=== PATIENT | male | born 1980 | race Caucasian/White ===

== ENCOUNTER 2020-10-20 08:22 | Emergency (ER) | payer BC ==
[2020-10-20 08:44] VITALS: BP 157/100; PULSE 102
[2020-10-20] MEDS ORDERED: Ondansetron 4 MG/2 ML SDV IVPUSH ONE (08:56)
[2020-10-20] MEDS ORDERED: Sodium Chloride 0.9% 1,000 ML IV STA (08:56)
[2020-10-20] MEDS ORDERED: HYDROmorphone 1 MG/ML Syringe IVPUSH ONE ×2 (08:57→09:57)
--- NOTE | 2020-10-20 09:03 | EDM.PDOC ---
ED HPI GENERAL MEDICAL PROBLEM - General Chief Complaint: Gastrointestinal Problem Stated Complaint: UNABLE TO EAT X 4 DAYS/DIARRHEA/KIDNEY PAIN Time Seen by Provider: 10/20/20 08:37 Source of Information: Reports: Patient, Family History Limitations: Reports: No Limitations - History of Present Illness INITIAL COMMENTS - FREE TEXT/NARRATIVE: The patient presents with nausea, vomiting, diarrhea and abdominal pain. This has been going on for about 4 to 5 days. He has not been able to eat much for 4 days. He has been trying to push fluids. He has been having a fever and c hills. He has no cough, congestion, chest pain or dysuria. He is having diarrhea multiple times per day. He has had this happen before and had his gallbladder removed and he had CT scans, EGD and colonoscopies. He saw GI. 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 The next time they did an EGD it was gone. He has no blood in his stool. He has not traveled anywhere. Onset: Gradual Duration: Day(s): (4) Location: Reports: Abdomen Quality: Reports: Sharp Severity: Moderate Improves with: Reports: None Worsens with: Reports: None Associated Symptoms: Reports: Fever/Chills, Nausea/Vomiting. Denies: Chest Pain, Cough, Headaches, Shortness of Breath Lower Back Pain Score (Numeric/FACES): 7 - Related Data Allergies Allergy/AdvReac Type Severity Reaction Status Date / Time codeine Allergy Itching Verified 10/20/20 08:39 Home Meds: Home Meds Acetaminophen/HYDROcodone [[place] 650-10 MG] 1 tab PO Q4H PRN #14 tab 10/28/13 [Rx] Hydrocodone/Acetaminophen [Hydrocodone-Acetamin 5-325 mg] 1 - 2 each PO Q6H PRN #15 tablet 10/20/20 [Rx] Ondansetron [Zofran ODT] 4 mg PO Q6H PRN #20 tab.dis 10/20/20 [Rx] predniSONE [Prednisone] 40 mg PO DAILY #10 tablet 10/20/20 [Rx] Past Medical History Cardiovascular History: Reports: Hypertension Gastrointestinal History: Reports: Chronic Diarrhea Neurological History: Reports: Migraines - Past Surgical History GI Surgical History: Reports: Appendectomy, Cholecystectomy Other Musculoskeletal Surgeries/Procedures:: elbow and knee surgery Social & Family History - Tobacco Use Tobacco Use Status *Q: Current Every Day Tobacco User Years of Tobacco use: 20 Packs/Tins Daily: 0.5 - Caffeine Use Caffeine Use: Reports: Coffee - Recreational Drug Use Recreational Drug Use: No ED ROS GENERAL - Review of Systems Review Of Systems: See Below Constitutional: Reports: Fever, Chills, Malaise, Weakness HEENT: Reports: No Symptoms Respiratory: Reports: No Symptoms Cardiovascular: Reports: No Symptoms Endocrine: Reports: No Symptoms GI/Abdominal: Reports: Abdominal Pain, Diarrhea, Nausea, Vomiting : Reports: No Symptoms Musculoskeletal: Reports: No Symptoms Skin: Reports: No Symptoms ED EXAM, GI/ABD - Physical Exam Exam: See Below Exam Limited By: No Limitations General Appearance: Alert, No Apparent Distress Ears: Normal External Exam Nose: Normal Inspection Head: Atraumatic, Normocephalic Neck: Normal Inspection Respiratory/Chest: No Respiratory Distress, Lungs Clear, Normal Breath Sounds Cardiovascular: Regular Rate, Rhythm, No Edema, No Murmur GI/Abdominal Exam: Soft, No Organomegaly, No Mass, Tender (Mild generalized tenderness) Course - Vital Signs Last Recorded V/S: Last Vital Signs Temp 97.6 F 10/20/20 08:40 Pulse 102 H 10/20/20 08:40 Resp 16 10/20/20 08:40 BP 157/100 H 10/20/20 08:40 Pulse Ox 99 10/20/20 08:40 Orthostatic Blood Pressure [ 139/94 Standing] Orthostatic Blood Pressure [ 139/100 Sitting] Orthostatic Blood Pressure [ 157/100 Supine] - Orders/Labs/Meds Orders: Active Orders 24 hr Category Date Time Status Peripheral IV Care [RC] . DIRECTED Care 10/20/20 08:56 Active STOOL CULTURE/SHIGA TOXIN [MREF] Stat Lab 10/20/20 12:32 Received Sodium Chloride 0.9% [Saline Flush] Med 10/20/20 08:56 Active 10 ml FLUSH ASDIRECTED PRN ED Antiemetic Medication Reflex [OM.PC] Stat Oth 10/20/20 08:57 Ordered Peripheral IV Insertion Adult [OM.PC] Stat Oth 10/20/20 08:56 Ordered Medication Orders Sodium Chloride (Sodium Chloride 0.9% 10 Ml Syringe) 10 ml FLUSH ASDIRECTED PRN PRN Reason: Keep Vein Open Last Admin: 10/20/20 10:15 Dose: 10 ml Documented by: Admin: 10/20/20 09:07 Dose: 10 ml Documented by: ROMAN Labs: Laboratory Tests 10/20/20 10/20/20 10/20/20 Range/Units 08:35 08:35 11:40 WBC 10.99 H (4.23-9.07) K/mm3 RBC 5.70 (4.63-6.08) M/mm3 Hgb 17.1 (13.7-17.5) gm/dl Hct 47.8 (40.1-51.0) % MCV 83.9 (79.0-92.2) fl MCH 30.0 (25.7-32.2) pg MCHC 35.8 H (32.2-35.5) g/dl RDW Std Deviation 39.6 (35.1-43.9) fL Plt Count 242 (163-337) K/mm3 MPV 9.9 (9.4-12.3) fl Neut % (Auto) 65.7 (34.0-67.9) % Lymph % (Auto) 18.8 L (21.8-53.1) % [place] % (Auto) 12.9 H (5.3-12.2) % Eos % (Auto) 2.0 (0.8-7.0) Baso % (Auto) 0.4 (0.1-1.2) % Neut # (Auto) 7.22 H (1.78-5.38) K/mm3 Lymph # (Auto) 2.07 (1.32-3.57) K/mm3 [place] # (Auto) 1.42 H (0.30-0.82) K/mm3 Eos # (Auto) 0.22 (0.04-0.54) K/mm3 Baso # (Auto) 0.04 (0.01-0.08) K/mm3 Manual Slide Review Abnormal smear Sodium 137 (136-145) mEq/L Potassium 3.1 L (3.5-5.1) mEq/L Chloride 99 (98-107) mEq/L Carbon Dioxide 25 (21-32) mEq/L Anion Gap 16.1 H (5-15) BUN 13 (7-18) mg/dL Creatinine 1.4 H (0.7-1.3) mg/dL Est Cr Clr Drug Dosing 79.27 mL/min Estimated GFR (MDRD) 56 (>60) mL/min BUN/Creatinine Ratio 9.3 L (14-18) Glucose 118 H (70-99) mg/dL Calcium 8.4 L (8.5-10.1) mg/dL Total Bilirubin 0.6 (0.2-1.0) mg/dL AST 30 (15-37) U/L ALT 65 H (16-63) U/L Alkaline Phosphatase 96 (46-116) U/L Total Protein 7.4 (6.4-8.2) g/dl Albumin 3.7 (3.4-5.0) g/dl Globulin 3.7 gm/dL Albumin/Globulin Ratio 1.0 (1-2) Lipase 123 (73-393) U/L Urine Color Yellow (Yellow) Urine Appearance Clear (Clear) Urine pH 6.0 (5.0-8.0) Ur Specific [place] 1.020 (1.005-1.030) Urine Protein Negative (Negative) Urine Glucose (UA) Negative (Negative) Urine Ketones Negative (Negative) Urine Occult Blood Negative (Negative) Urine Nitrite Negative (Negative) Urine Bilirubin Negative (Negative) Urine Urobilinogen 0.2 (0.2-1.0) Ur Leukocyte Esterase Negative (Negative) Urine RBC Not seen (0-5) /hpf Urine WBC 0-5 (0-5) /hpf Ur Squamous Epith Cells 0-5 (0-5) /hpf Urine Bacteria Few (FEW) /hpf Urine Mucus Moderate H (FEW) /hpf C.difficile [id number]-[id number] C. difficile Tox (PCR) 10/20/20 Range/Units 12:32 WBC (4.23-9.07) K/mm3 RBC (4.63-6.08) M/mm3 Hgb (13.7-17.5) gm/dl Hct (40.1-51.0) % MCV (79.0-92.2) fl MCH (25.7-32.2) pg MCHC (32.2-35.5) g/dl RDW Std Deviation (35.1-43.9) fL Plt Count (163-337) K/mm3 MPV (9.4-12.3) fl Neut % (Auto) (34.0-67.9) % Lymph % (Auto) (21.8-53.1) % [place] % (Auto) (5.3-12.2) % Eos % (Auto) (0.8-7.0) Baso % (Auto) (0.1-1.2) % Neut # (Auto) (1.78-5.38) K/mm3 Lymph # (Auto) (1.32-3.57) K/mm3 [place] # (Auto) (0.30-0.82) K/mm3 Eos # (Auto) (0.04-0.54) K/mm3 Baso # (Auto) (0.01-0.08) K/mm3 Manual Slide Review Sodium (136-145) mEq/L Potassium (3.5-5.1) mEq/L Chloride (98-107) mEq/L Carbon Dioxide (21-32) mEq/L Anion Gap (5-15) BUN (7-18) mg/dL Creatinine (0.7-1.3) mg/dL Est Cr Clr Drug Dosing mL/min Estimated GFR (MDRD) (>60) mL/min BUN/Creatinine Ratio (14-18) Glucose (70-99) mg/dL Calcium (8.5-10.1) mg/dL Total Bilirubin (0.2-1.0) mg/dL AST (15-37) U/L ALT (16-63) U/L Alkaline Phosphatase (46-116) U/L Total Protein (6.4-8.2) g/dl Albumin (3.4-5.0) g/dl Globulin gm/dL Albumin/Globulin Ratio (1-2) Lipase (73-393) U/L Urine Color (Yellow) Urine Appearance (Clear) Urine pH (5.0-8.0) Ur Specific [place] (1.005-1.030) Urine Protein (Negative) Urine Glucose (UA) (Negative) Urine Ketones (Negative) Urine Occult Blood (Negative) Urine Nitrite (Negative) Urine Bilirubin (Negative) Urine Urobilinogen (0.2-1.0) Ur Leukocyte Esterase (Negative) Urine RBC (0-5) /hpf Urine WBC (0-5) /hpf Ur Squamous Epith Cells (0-5) /hpf Urine Bacteria (FEW) /hpf Urine Mucus (FEW) /hpf C.difficile [id number] Presumptive negative C. difficile Tox (PCR) Negative Meds: Medications Generic Name Dose Route Start Last Admin Trade Name Freq PRN Reason Stop Dose Admin Sodium Chloride 10 ml 10/20/20 08:56 10/20/20 10:15 Sodium Chloride 0.9% 10 Ml Syringe FLUSH 10 ml ASDIRECTED PRN Administration Keep Vein Open Discontinued Medications Generic Name Dose Route Start Last Admin Trade Name Mishel PRN Reason Stop Dose Admin Hydromorphone HCl 1 mg 10/20/20 08:57 10/20/20 09:06 Hydromorphone 1 Mg/Ml Syringe IVPUSH 10/20/20 08:58 1 mg ONETIME ONE Administration Hydromorphone HCl 1 mg 10/20/20 09:57 10/20/20 10:14 Hydromorphone 1 Mg/Ml Syringe IVPUSH 10/20/20 09:58 1 mg ONETIME ONE Administration Sodium Chloride 1,000 mls @ 1,000 mls/hr 10/20/20 08:56 10/20/20 09:05 Normal Saline IV 10/20/20 09:55 1,000 mls/hr .BOLUS STA Administration Lactated Ringer's 1,000 mls @ 1,000 mls/hr 10/20/20 11:25 10/20/20 11:58 Ringers, Lactated IV 10/20/20 12:24 1,000 mls/hr .BOLUS ONE Administration Iopamidol 100 ml 10/20/20 11:26 10/20/20 11:27 Iopamidol 612 Mg/Ml 100 Ml Bottle IVPUSH 10/20/20 11:27 100 ml ONETIME ONE Administration Metoclopramide HCl 10 mg 10/20/20 12:00 10/20/20 12:08 Metoclopramide 10 Mg/2 Ml Sdv IVPUSH 10/20/20 12:01 10 mg ONETIME ONE Administration Ondansetron HCl 4 mg 10/20/20 08:56 10/20/20 09:06 Ondansetron 4 Mg/2 Ml Sdv IVPUSH 10/20/20 08:57 4 mg ONETIME ONE Administration - Re-Assessments/Exams Free Text/Narrative Re-Assessment/Exam: 10/20/20 09:02 I ordered an IV NS 1L bolus, zofran 4mg IV, dilaudid 1mg IV, labs, and UA. 10/20/20 12:21 His WBC was elevated at 10.99. His K is low at 3.1. His anion gap was elevated at 16.1. His creatinine is elevated at 1.4. His glucose is 118. His ALT is elevated at 65. His lipase is negative. His UA shows no UTI. He had more pain and nausea so I ordered dilaudid 1mg IV, reglan 10mg IV and a liter of LR. His CT shows findings suggest moderate nonspecific colitis. Potential differential diagnoses include infections process, inflammatory processes as well as ischemic etiologies. Subcentimeter low-density foci in both kidneys, statistically benign cysts are favored. No further workup is recommended. Hepatic steatosis. Mild hepatomegaly. Prominent splenic size. He feels he can give us a stool sample now. He does not feel much better. He did not keep down all of the contrast. 10/20/20 13:59 The C-dif is negative. I feel this is inflammatory. He feels better and he wants to go home. I will give him a dose of solu-medrol here. I will give him a prescription for prednisone, zofran and something for pain. Departure - Departure Time of Disposition: 14:00 Disposition: Home, Self-Care 01 Condition: Good Clinical Impression: Colitis, Vomiting, Diarrhea - Discharge Information *PRESCRIPTION DRUG MONITORING PROGRAM REVIEWED*: Not Applicable *COPY OF PRESCRIPTION DRUG MONITORING REPORT IN PATIENT [place]: Not Applicable Prescriptions: Hydrocodone/Acetaminophen [Hydrocodone-Acetamin 5-325 mg] 1 - 2 each PO Q6H PRN #15 tablet PRN Reason: Pain predniSONE [Prednisone] 40 mg PO DAILY #10 tablet Ondansetron [Zofran ODT] 4 mg PO Q6H PRN #20 tab.dis PRN Reason: Nausea\vomiting Referrals: Misa Helm NP [Primary Care Provider] - 1 Week Forms: ED Department Discharge Additional Instructions: Drink plenty of fluids. Take the zofran every 6 hours as needed for nausea and vomiting. Take the prednisone daily for 5 days. You can start that tomorrow. You were given some steroids through your IV here. Take the hydrocodone every 6 hours as needed for any pain. Follow up with your doctor within a week. Please return if you are worse. Sepsis Event Note (ED) - Evaluation Sepsis Screening Result: Possible Sepsis Risk - Focused Exam Vital Signs: Vital Signs Temp Pulse Resp BP Pulse Ox 10/20/20 08:40 97.6 F 102 H 16 157/100 H 99 - My Orders Last 24 Hours: My Active Orders 10/20/20 08:56 Peripheral IV Care [RC] . DIRECTED Sodium Chloride 0.9% [Saline Flush] 10 ml FLUSH ASDIRECTED PRN Peripheral IV Insertion Adult [OM.PC] Stat 10/20/20 08:57 ED Antiemetic Medication Reflex [OM.PC] Stat 10/20/20 12:32 STOOL CULTURE/SHIGA TOXIN [MREF] Stat - Assessment/Plan Last 24 Hours: My Active Orders 10/20/20 08:56 Peripheral IV Care [RC] . DIRECTED Sodium Chloride 0.9% [Saline Flush] 10 ml FLUSH ASDIRECTED PRN Peripheral IV Insertion Adult [OM.PC] Stat 10/20/20 08:57 ED Antiemetic Medication Reflex [OM.PC] Stat 10/20/20 12:32 STOOL CULTURE/SHIGA TOXIN [MREF] Stat
[2020-10-20] MEDS: Sodium Chloride 0.9% 10 ML Syringe FLUSH PRN ×2 (09:07→10:15)
[2020-10-20] MEDS ORDERED: Lactated Ringers 1,000 ML IV ONE (11:25)
[2020-10-20] MEDS ORDERED: Iopamidol 612 MG/ML 100 ML Bottle IVPUSH ONE (11:26)
[2020-10-20] MEDS ORDERED: Metoclopramide 10 MG/2 ML SDV IVPUSH ONE (12:00)
--- NOTE | 2020-10-20 12:58 | CT ---
CT abdomen and pelvis Technique: Multiple axial sections were obtained from above the dome of the diaphragm inferiorly through the pubic symphysis. Intravenous and oral contrast was utilized. Delayed images were also obtained through the bladder. Reconstructed coronal and sagittal images were also obtained. Comparison: Prior CT abdomen and pelvis study performed without contrast from 08/02/11. Findings: Visualized lung bases show nothing acute. Liver shows diffuse fatty infiltration. No focal abnormality is appreciated within the liver. Surgical clips are noted from prior cholecystectomy. Spleen measures 13.1 cm in size and is felt to be within normal limits. Small hiatal hernia seen. Contrast is noted within the hiatal hernia compatible with gastroesophageal reflux. Adrenal glands show no nodule. No abnormality is seen within the pancreas. Kidneys show symmetric contrast enhancement. Minimal low density findings are seen within the kidneys compatible with minimal cysts. Largest cyst is noted within the upper left kidney measuring approximately 4.8 mm. There is a small nonobstructing stone within the inferior right kidney which measures approximately 4 mm. Ureters show no dilatation or abnormal calcifications. Abdominal aorta shows no aneurysm. No retroperitoneal adenopathy or mesenteric abnormalities are seen. Appendix is not visualized with certainty. No pelvic mass or adenopathy is seen. There is diffuse bowel wall thickening throughout the colon. Mild surrounding inflammatory change is also noted around the colon. Delayed images show contrast within the right ureter and bladder. Bone window settings were reviewed which appear within normal limits for the patient's age. Impression: 1. Diffuse bowel wall thickening with surrounding inflammatory change involving the colon. Findings are compatible with nonspecific colitis. 2. Fatty infiltration within the liver. 3. Small findings within the kidneys as noted above. Diagnostic code #3 I agree with preliminary report from [facility], finalized on 10/20/20, 1:08 PM CDT, code 1
[2020-10-20] MEDS ORDERED: methylPREDNISolone Sodium Succinate 125 MG/2 ML SDV IVPUSH ONE (13:59)
== END 2020-10-20 14:25 | disposition home or self-care (01) ==
LOC: JD.ED 08:22
DX: K52.9 Noninfective gastroenteritis and colitis, unspecified (principal); I10 Essential (primary) hypertension; Z88.5 Allergy status to narcotic agent; Z72.0 Tobacco use
CPT/HCPCS: 36415; 74177; 80053; 81001; 83690; 85025; 87045; 87046; 87493; 87899; 96374; 96375; 96376; 99284; J1170; J2405; J2765; J2930; J7030; J7120; Q9967

== ENCOUNTER 2021-01-17 08:18 | Emergency (ER) | payer BC ==
[2021-01-17 08:25] VITALS: BP 171/96; PULSE 92
--- NOTE | 2021-01-17 08:26 | EDM.PDOC ---
ED HPI GENERAL MEDICAL PROBLEM - General Chief Complaint: Flank Pain Stated Complaint: FLANK PAIN Time Seen by Provider: 01/17/21 08:25 - History of Present Illness INITIAL COMMENTS - FREE TEXT/NARRATIVE: 41-year-old male presents the emergency room with what he believes is a kidney stone on the left side. About 20 minutes prior to arrival patient had sudden onset pain that brought him down to his knees. He has not had any associated fevers or chills with this. Couple weeks ago he had pain on this side that was much milder then it spontaneously went away. Patient does have a history of kidney stones. He has not had any burning or frequency with urination no gross blood noted in his urine. Patient denies any other complaints at this time. Left Flank Pain Score (Numeric/FACES): 10 - Related Data Allergies Allergy/AdvReac Type Severity Reaction Status Date / Time codeine Allergy Itching Verified 01/17/21 08:25 Home Meds: Home Meds Hydrocodone/Acetaminophen [HYDROcodone-Acetaminophen 5-325 MG] 1 - 2 each PO Q6H PRN #20 tab 01/17/21 [Rx] Lisinopril/Hydrochlorothiazide [Lisinopril-Hctz 20-25 mg Tab] 1 tab PO DAILY 01/17/21 [History] Omeprazole Magnesium [Prilosec Otc] 20 mg PO DAILY 01/17/21 [History] Topiramate [Topamax] 25 mg PO DAILY 01/17/21 [History] Past Medical History Cardiovascular History: Reports: Hypertension Gastrointestinal History: Reports: Chronic Diarrhea Neurological History: Reports: Migraines - Past Surgical History GI Surgical History: Reports: Appendectomy, Cholecystectomy Other Musculoskeletal Surgeries/Procedures:: elbow and knee surgery Social & Family History - Caffeine Use Caffeine Use: Reports: Coffee ED ROS GENERAL - Review of Systems Review Of Systems: See Below Constitutional: Reports: No Symptoms HEENT: Reports: No Symptoms Respiratory: Reports: No Symptoms Cardiovascular: Reports: No Symptoms GI/Abdominal: Reports: Abdominal Pain (Left-sided), Other (He has IBS symptoms and is being treated for this.). Denies: Nausea, Vomiting : Reports: Flank Pain. Denies: Discharge, Dysuria, Frequency, Urgency Musculoskeletal: Reports: No Symptoms Skin: Reports: No Symptoms Neurological: Reports: No Symptoms ED EXAM, GENERAL - Physical Exam Exam: See Below Exam Limited By: No Limitations General Appearance: Alert, No Apparent Distress Eye Exam: Bilateral Eye: Normal Inspection Ears: Normal External Exam, Normal Canal, Hearing Grossly Normal, Normal TMs Nose: Normal Inspection, Normal Mucosa, No Blood Throat/Mouth: Normal Inspection, Normal Lips, Normal Teeth, Normal Oropharynx, Normal Voice, No Airway Compromise Head: Atraumatic, Normocephalic Neck: Normal Inspection, Supple, Non-Tender, Full Range of Motion. No: Lymphadenopathy (L), Lymphadenopathy (R) Respiratory/Chest: No Respiratory Distress, Lungs Clear, Normal Breath Sounds Cardiovascular: Regular Rate, Rhythm, No Edema, No Murmur GI/Abdominal: Normal Bowel Sounds, Soft, Other (The patient has some left-sided discomfort in the abdomen this is not worsened with palpation). No: Guarding, Rigid, Rebound Back Exam: Normal Inspection, CVA Tenderness (L), CVA Tenderness (R) Neurological: Alert, Oriented, Normal Cognition Course - Vital Signs Last Recorded V/S: Last Vital Signs Temp 36.1 C 01/17/21 08:23 Pulse 92 01/17/21 08:23 Resp 20 01/17/21 08:23 BP 171/96 H 01/17/21 08:23 Pulse Ox 100 01/17/21 08:23 - Orders/Labs/Meds Orders: Active Orders 24 hr Category Date Time Status Lactated Ringers [Ringers, Lactated] 1,000 ml Med 01/17/21 08:45 Active IV ASDIRECTED Medication Orders Lactated Ringer's (Ringers, Lactated) 1,000 mls @ 75 mls/hr IV ASDIRECTED SHERLEY Last Admin: 01/17/21 08:54 Dose: 75 mls/hr Documented by: STEPHANIE Labs: Laboratory Tests 01/17/21 01/17/21 01/17/21 Range/Units 08:31 08:56 08:56 WBC 8.90 (4.23-9.07) K/mm3 RBC 5.27 (4.63-6.08) M/mm3 Hgb 15.7 (13.7-17.5) gm/dl Hct 45.3 (40.1-51.0) % MCV 86.0 (79.0-92.2) fl MCH 29.8 (25.7-32.2) pg MCHC 34.7 (32.2-35.5) g/dl RDW Std Deviation 40.9 (35.1-43.9) fL Plt Count 266 (163-337) K/mm3 MPV 9.5 (9.4-12.3) fl Neut % (Auto) 56.5 (34.0-67.9) % Lymph % (Auto) 30.4 (21.8-53.1) % [place] % (Auto) 7.2 (5.3-12.2) % Eos % (Auto) 5.3 (0.8-7.0) Baso % (Auto) 0.4 (0.1-1.2) % Neut # (Auto) 5.02 (1.78-5.38) K/mm3 Lymph # (Auto) 2.71 (1.32-3.57) K/mm3 [place] # (Auto) 0.64 (0.30-0.82) K/mm3 Eos # (Auto) 0.47 (0.04-0.54) K/mm3 Baso # (Auto) 0.04 (0.01-0.08) K/mm3 Sodium 142 (136-145) mEq/L Potassium 3.8 (3.5-5.1) mEq/L Chloride 107 (98-107) mEq/L Carbon Dioxide 22 (21-32) mEq/L Anion Gap 16.8 H (5-15) BUN 15 (7-18) mg/dL Creatinine 1.3 (0.7-1.3) mg/dL Est Cr Clr Drug Dosing 84.51 mL/min Estimated GFR (MDRD) > 60 (>60) mL/min BUN/Creatinine Ratio 11.5 L (14-18) Glucose 125 H (70-99) mg/dL Calcium 8.4 L (8.5-10.1) mg/dL Total Bilirubin 0.3 (0.2-1.0) mg/dL AST 15 (15-37) U/L ALT 47 (16-63) U/L Alkaline Phosphatase 81 (46-116) U/L Total Protein 6.7 (6.4-8.2) g/dl Albumin 3.6 (3.4-5.0) g/dl Globulin 3.1 gm/dL Albumin/Globulin Ratio 1.2 (1-2) Urine Color Yellow (Yellow) Urine Appearance Clear (Clear) Urine pH 6.0 (5.0-8.0) Ur Specific [place] > or = 1.030 (1.005-1.030) Urine Protein Negative (Negative) Urine Glucose (UA) Negative (Negative) Urine Ketones Negative (Negative) Urine Occult Blood Trace-lysed H (Negative) Urine Nitrite Negative (Negative) Urine Bilirubin Negative (Negative) Urine Urobilinogen 0.2 (0.2-1.0) Ur Leukocyte Esterase Negative (Negative) Urine RBC 0-5 (0-5) /hpf Urine WBC 0-5 (0-5) /hpf Ur Epithelial Cells 0-5 (0-5) /hpf Urine Bacteria Few (FEW) /hpf Urine Mucus Not seen (FEW) /hpf Meds: Medications Generic Name Dose Route Start Last Admin Trade Name Freq PRN Reason Stop Dose Admin Lactated Ringer's 1,000 mls @ 75 mls/hr 01/17/21 08:45 01/17/21 08:54 Ringers, Lactated IV 75 mls/hr ASDIRECTED SHERLEY Administration Discontinued Medications Generic Name Dose Route Start Last Admin Trade Name Freq PRN Reason Stop Dose Admin Fentanyl 50 mcg 01/17/21 08:41 01/17/21 08:54 Fentanyl 100 Mcg/2 Ml Sdv IVPUSH 01/17/21 08:42 50 mcg ONETIME ONE Administration - Re-Assessments/Exams Free Text/Narrative Re-Assessment/Exam: 01/17/21 11:38 Was reviewed no sign of a urinary tract infection creatinine is 1.3. CT shows a distal left ureter stone close to the UVJ that measures 3 mm. The patient has used Flomax in the past and was not convinced it helped. Will give the patient some pain medication and have strongly recommended he follow-up with his regular healthcare provider for recheck on Wednesday or Wednesday. Departure - Departure Time of Disposition: 11:40 Disposition: Home, Self-Care 01 Clinical Impression: Kidney stone on left side - Discharge Information Referrals: Misa Helm NP [Primary Care Provider] - Forms: ED Department Discharge Additional Instructions: Return to the emergency room with any questions problems or worsening symptoms. Return immediately if you develop any fevers. Follow-up with your regular healthcare provider early this next week for recheck. I am optimistic by then you will of passed the stone. Please try and capture the stone. I sent a prescription for hydrocodone to the [facility] pharmacy on [address]. Allow 12 hours after using this medication before driving or returning to work. You may use Tylenol and ibuprofen as needed for pain the hydrocodone tablets each contain 325 mg of acetaminophen, or Tylenol. Do not allow your Tylenol dosage to exceed 4000 mg in a 24-hour. Also the hydrocodone can cause constipation if needing to use this on a regular basis use a good stool softener. Sepsis Event Note (ED) - Focused Exam Vital Signs: Vital Signs Temp Pulse Resp BP Pulse Ox 01/17/21 08:23 36.1 C 92 20 171/96 H 100 - My Orders Last 24 Hours: My Active Orders 01/17/21 08:45 Lactated Ringers [Ringers, Lactated] 1,000 ml IV ASDIRECTED - Assessment/Plan Last 24 Hours: My Active Orders 01/17/21 08:45 Lactated Ringers [Ringers, Lactated] 1,000 ml IV ASDIRECTED
[2021-01-17] MEDS ORDERED: fentaNYL 100 MCG/2 ML SDV IVPUSH ONE (08:41)
[2021-01-17] MEDS ORDERED: Lactated Ringers 1,000 ML IV SCH (08:45)
--- NOTE | 2021-01-17 10:11 | CT ---
CT abdomen and pelvis Technique: Multiple axial sections were obtained from above the dome of the diaphragm inferiorly through the pubic symphysis. Intravenous and oral contrast were not utilized. Study has been performed as a ureteral stone protocol. Comparison: Prior CT abdomen and pelvis exam of 10/20/20. Findings: Left ureter is mildly prominent. This finding is caused by a distal left ureteral calculus located slightly proximal to the UVJ and measuring about 3 mm. No additional ureteral calculi are seen. Lower pole calculus is noted within the right kidney measuring 6 mm. Small cyst is noted within the upper left kidney measuring approximately 6 mm. Visualized lung bases show nothing acute. Diffuse fatty infiltration is noted within the liver. Surgical clips are seen from prior cholecystectomy. Spleen size is normal. Adrenal glands show no nodule. Pancreas shows no abnormality. Abdominal aorta shows no aneurysm. No retroperitoneal adenopathy or mesenteric abnormalities are seen. No pelvic mass or adenopathy is seen. Appendix is not visualized with certainty. There is no inflammatory change being seen around the colon as noted on previous exam. Bone window settings were reviewed which appear within normal limits for the patient's age. Impression: 1. Small 3 mm obstructing calculus located slightly proximal to the left UVJ causing mild proximal hydronephrosis. This finding was discussed with the ordering physician by phone at around time 9:45 AM. 2. 6 mm lower pole nonobstructing calculus within the lower right kidney. 3. Diffuse fatty infiltration within the liver. Diagnostic code #3
== END 2021-01-17 12:24 | disposition home or self-care (01) ==
LOC: JD.ED 08:18
DX: N13.2 Hydronephrosis with renal and ureteral calculous obstruction (principal); I10 Essential (primary) hypertension; Z88.5 Allergy status to narcotic agent; Z79.899 Other long term (current) drug therapy
CPT/HCPCS: 36415; 74176; 80053; 81001; 85025; 96374; 99284; J3010; J7120

== ENCOUNTER 2021-04-14 10:53 | Day surgery (SDC) | payer BC ==
[2021-04-14] MEDS ORDERED: Sodium Chloride 0.9% 10 ML Syringe FLUSH PRN (11:42)
[2021-04-14] MEDS ORDERED: Sodium Chloride 0.9% 1,000 ML IV STA (11:42)
[2021-04-14] MEDS ORDERED: Iopamidol 612 MG/ML 100 ML Bottle IVPUSH ONE (11:48)
[2021-04-14] MEDS ORDERED: Diatrizoate Meglumine/Diatrizoate Sodium 37% 120 ML Bottle PO ONE (11:48)
--- NOTE | 2021-04-14 12:01 | EDM.PDOC ---
ED HPI GENERAL MEDICAL PROBLEM - General Chief Complaint: Gastrointestinal Problem Stated Complaint: BLOOD IN STOOL Time Seen by Provider: 04/14/21 11:12 Source of Information: Reports: Patient, Old Records, RN Notes Reviewed History Limitations: Reports: No Limitations - History of Present Illness INITIAL COMMENTS - FREE TEXT/NARRATIVE: Patient is a 41-year-old male presenting to the emergency department with complaints of lenka red blood in his stool, epigastric discomfort, nausea, and bilateral "kidney pain ". Patient reports he has had approximately 5 loose bowel movements in the last 24 hours which contained lenka red blood. Reports it was enough to turn the water in the toilet red and was also present on the toilet paper. Denies any rectal bleeding between bowel movements. Patient reports history of chronic diarrhea with mucus in his stool. He is being "worked up for colitis ". Last colonoscopy was approximately 3 years ago at which time he states he was having gallbladder problems. Patient reports history of epigastric pain and nausea. Reports at one time he was diagnosed with Fritz's esophagus, however on follow-up EGD he was told he does not have Fritz's esophagus. Denies any vomiting. He takes omeprazole daily. EGDs were completed by GI specialist at [facility] in [place], Dr. Garcia. He has had kidney stones in the past. Reports in January of this year he was diagnosed with left-sided kidney stone. Does not feel that he passed that stone. Denies any blood in his urine, dysuria, or frequency of urination. He has had no fever or chills. His primary care provider is Misa Helm NP Back Pain Score (Numeric/FACES): 4 - Related Data Allergies Allergy/AdvReac Type Severity Reaction Status Date / Time codeine Allergy Itching Verified 04/14/21 11:10 Home Meds: Home Meds Hydrocodone/Acetaminophen [HYDROcodone-Acetaminophen 5-325 MG] 1 - 2 each PO Q6H PRN #20 tab 01/17/21 [Rx] Lisinopril/Hydrochlorothiazide [Lisinopril-Hctz 20-25 mg Tab] 1 tab PO DAILY 01/17/21 [History] Omeprazole Magnesium [Prilosec Otc] 20 mg PO DAILY 01/17/21 [History] Topiramate [Topamax] 25 mg PO DAILY 01/17/21 [History] Past Medical History Cardiovascular History: Reports: Hypertension Gastrointestinal History: Reports: Chronic Diarrhea Genitourinary History: Reports: Renal Calculus Musculoskeletal History: Reports: Other (See Below) Other Musculoskeletal History: right knee surgery Neurological History: Reports: Migraines Endocrine/Metabolic History: Reports: Obesity/BMI 30+ - Past Surgical History GI Surgical History: Reports: Appendectomy, Cholecystectomy Other Musculoskeletal Surgeries/Procedures:: elbow and knee surgery Social & Family History - Tobacco Use Tobacco Use Status *Q: Current Every Day Tobacco User Years of Tobacco use: 25 Packs/Tins Daily: 0.5 - Caffeine Use Caffeine Use: Reports: Coffee - Recreational Drug Use Recreational Drug Use: No ED ROS GENERAL - Review of Systems Review Of Systems: Comprehensive ROS is negative, except as noted in HPI. ED EXAM, GI/ABD - Physical Exam Exam: See Below Exam Limited By: No Limitations General Appearance: Alert, WD/WN, No Apparent Distress Respiratory/Chest: No Respiratory Distress, Lungs Clear, Normal Breath Sounds, No Accessory Muscle Use, Chest Non-Tender Cardiovascular: Normal Peripheral Pulses, Regular Rate, Rhythm, No Edema, No Gallop, No JVD, No Murmur, No Rub GI/Abdominal Exam: Normal Bowel Sounds, Soft, No Organomegaly, No Distention, No Abnormal Bruit, No Mass, Pelvis Stable, Tender (mild epigastric). No: Guarding, Rigid, Rebound Rectal (Males) Exam: Normal Exam, Normal Rectal Tone, Heme - Stool. No: Black Stool, Bloody Stool, Hemorrhoids Neurological: Alert, Oriented, CN II-XII Intact, Normal Cognition, Normal Gait, Normal Reflexes, No Motor/Sensory Deficits Psychiatric: Normal Affect, Normal Mood Skin Exam: Warm, Dry, Intact, Normal Color, No Rash Course - Vital Signs Last Recorded V/S: Last Vital Signs Temp 208.0 F H 04/14/21 16:38 Pulse 82 04/14/21 16:38 Resp 16 04/14/21 16:38 BP 121/75 04/14/21 16:38 Pulse Ox 94 L 04/14/21 16:38 - Orders/Labs/Meds Labs: Laboratory Tests 04/14/21 04/14/21 04/14/21 Range/Units 12:25 12:25 12:25 WBC 9.70 H (4.23-9.07) K/mm3 RBC 5.59 (4.63-6.08) M/mm3 Hgb 16.6 (13.7-17.5) gm/dl Hct 48.4 (40.1-51.0) % MCV 86.6 (79.0-92.2) fl MCH 29.7 (25.7-32.2) pg MCHC 34.3 (32.2-35.5) g/dl RDW Std Deviation 42.3 (35.1-43.9) fL Plt Count 242 (163-337) K/mm3 MPV 9.7 (9.4-12.3) fl Neut % (Auto) 60.5 (34.0-67.9) % Lymph % (Auto) 29.6 (21.8-53.1) % [place] % (Auto) 6.7 (5.3-12.2) % Eos % (Auto) 2.5 (0.8-7.0) Baso % (Auto) 0.6 (0.1-1.2) % Neut # (Auto) 5.87 H (1.78-5.38) K/mm3 Lymph # (Auto) 2.87 (1.32-3.57) K/mm3 [place] # (Auto) 0.65 (0.30-0.82) K/mm3 Eos # (Auto) 0.24 (0.04-0.54) K/mm3 Baso # (Auto) 0.06 (0.01-0.08) K/mm3 ESR 3 (0-15) mm/hr PT (9.7-12.0) SECONDS INR APTT (21.7-31.4) SECONDS Sodium (136-145) mEq/L Potassium (3.5-5.1) mEq/L Chloride (98-107) mEq/L Carbon Dioxide (21-32) mEq/L Anion Gap (5-15) BUN (7-18) mg/dL Creatinine (0.7-1.3) mg/dL Est Cr Clr Drug Dosing mL/min Estimated GFR (MDRD) (>60) mL/min BUN/Creatinine Ratio (14-18) Glucose (70-99) mg/dL Calcium (8.5-10.1) mg/dL Total Bilirubin (0.2-1.0) mg/dL AST (15-37) U/L ALT (16-63) U/L Alkaline Phosphatase (46-116) U/L C-Reactive Protein (<1.0) mg/dL Total Protein (6.4-8.2) g/dl Albumin (3.4-5.0) g/dl Globulin gm/dL Albumin/Globulin Ratio (1-2) Urine Color Yellow (Yellow) Urine Appearance Clear (Clear) Urine pH 6.0 (5.0-8.0) Ur Specific [place] 1.020 (1.005-1.030) Urine Protein Negative (Negative) Urine Glucose (UA) Negative (Negative) Urine Ketones Negative (Negative) Urine Occult Blood Negative (Negative) Urine Nitrite Negative (Negative) Urine Bilirubin Negative (Negative) Urine Urobilinogen 0.2 (0.2-1.0) Ur Leukocyte Esterase Negative (Negative) Urine RBC 0-5 (0-5) /hpf Urine WBC 0-5 (0-5) /hpf Ur Epithelial Cells 0-5 (0-5) /hpf Urine Bacteria Not seen (FEW) /hpf Urine Mucus Not seen (FEW) /hpf SARS-CoV-2 RNA (LOVE) (NEGATIVE) 04/14/21 04/14/21 04/14/21 Range/Units 12:25 12:25 15:04 WBC (4.23-9.07) K/mm3 RBC (4.63-6.08) M/mm3 Hgb (13.7-17.5) gm/dl Hct (40.1-51.0) % MCV (79.0-92.2) fl MCH (25.7-32.2) pg MCHC (32.2-35.5) g/dl RDW Std Deviation (35.1-43.9) fL Plt Count (163-337) K/mm3 MPV (9.4-12.3) fl Neut % (Auto) (34.0-67.9) % Lymph % (Auto) (21.8-53.1) % [place] % (Auto) (5.3-12.2) % Eos % (Auto) (0.8-7.0) Baso % (Auto) (0.1-1.2) % Neut # (Auto) (1.78-5.38) K/mm3 Lymph # (Auto) (1.32-3.57) K/mm3 [place] # (Auto) (0.30-0.82) K/mm3 Eos # (Auto) (0.04-0.54) K/mm3 Baso # (Auto) (0.01-0.08) K/mm3 ESR (0-15) mm/hr PT 10.1 (9.7-12.0) SECONDS INR < 0.93 APTT 29.3 (21.7-31.4) SECONDS Sodium 141 (136-145) mEq/L Potassium 3.9 (3.5-5.1) mEq/L Chloride 102 (98-107) mEq/L Carbon Dioxide 28 (21-32) mEq/L Anion Gap 14.9 (5-15) BUN 13 (7-18) mg/dL Creatinine 1.3 (0.7-1.3) mg/dL Est Cr Clr Drug Dosing 84.51 mL/min Estimated GFR (MDRD) > 60 (>60) mL/min BUN/Creatinine Ratio 10.0 L (14-18) Glucose 90 (70-99) mg/dL Calcium 9.0 (8.5-10.1) mg/dL Total Bilirubin 0.4 (0.2-1.0) mg/dL AST 23 (15-37) U/L ALT 57 (16-63) U/L Alkaline Phosphatase 95 (46-116) U/L C-Reactive Protein 0.2 (<1.0) mg/dL Total Protein 7.7 (6.4-8.2) g/dl Albumin 4.2 (3.4-5.0) g/dl Globulin 3.5 gm/dL Albumin/Globulin Ratio 1.2 (1-2) Urine Color (Yellow) Urine Appearance (Clear) Urine pH (5.0-8.0) Ur Specific [place] (1.005-1.030) Urine Protein (Negative) Urine Glucose (UA) (Negative) Urine Ketones (Negative) Urine Occult Blood (Negative) Urine Nitrite (Negative) Urine Bilirubin (Negative) Urine Urobilinogen (0.2-1.0) Ur Leukocyte Esterase (Negative) Urine RBC (0-5) /hpf Urine WBC (0-5) /hpf Ur Epithelial Cells (0-5) /hpf Urine Bacteria (FEW) /hpf Urine Mucus (FEW) /hpf SARS-CoV-2 RNA (LOVE) Negative (NEGATIVE) Meds: Medications Discontinued Medications Generic Name Dose Route Start Last Admin Trade Name Freq PRN Reason Stop Dose Admin Diatrizoate Meglum/Diatrizoate Sod 120 ml 04/14/21 11:48 04/14/21 12:26 Diatrizoate Meglumine/Diatrizoate Sodium 37% 120 Ml Bottle PO 04/14/21 11:49 120 ml ONETIME ONE Administration Fentanyl Confirm 04/14/21 16:05 Fentanyl 100 Mcg/2 Ml Sdv Administered 04/14/21 16:06 Dose 100 mcg .ROUTE .STK-MED ONE Sodium Chloride 1,000 mls @ 150 mls/hr 04/14/21 11:42 04/14/21 12:26 Normal Saline IV 04/14/21 18:21 150 mls/hr NOW STA Administration Lidocaine HCl Confirm 04/14/21 16:02 Xylocaine-Mpf 1% Administered 04/14/21 16:03 Dose 6 mls @ as directed .ROUTE .STK-MED ONE Iopamidol 100 ml 04/14/21 11:48 04/14/21 12:49 Iopamidol 612 Mg/Ml 100 Ml Bottle IVPUSH 04/14/21 11:49 100 ml ONETIME ONE Administration Midazolam HCl Confirm 04/14/21 16:02 Midazolam 1 Mg/Ml 2 Ml Sdv Administered 04/14/21 16:03 Dose 2 mg .ROUTE .STK-MED ONE Propofol Confirm 04/14/21 16:02 Propofol 200 Mg/20 Ml Sdv Administered 04/14/21 16:03 Dose 200 mg .ROUTE .STK-MED ONE Sodium Chloride 10 ml 04/14/21 11:42 04/14/21 12:26 Sodium Chloride 0.9% 10 Ml Syringe FLUSH 10 ml ASDIRECTED PRN Administration Keep Vein Open Sodium Chloride 10 ml 04/14/21 11:48 04/14/21 12:49 Sodium Chloride 0.9% 10 Ml Syringe FLUSH 10 ml ONETIME PRN Administration IV FLUSH - Re-Assessments/Exams Free Text/Narrative Re-Assessment/Exam: 41-year-old male presenting to the emergency department for evaluation of blood in his stools, epigastric pain, nausea, and "kidney pain ". Over the last 24 hours, stools have been loose and contained lenka red blood. Rectal exam was completed and was Hemoccult negative, however a significant amount of stool was not able to be obtained. No visible hemorrhoids. He has some mild tenderness to palpation of the epigastrium. Exam is otherwise unremarkable. I have ordered blood work,We will start IV fluids of normal saline at 150 mill per hour. He denies any for pain or nausea medications at this time. 04/14/21 14:22 hematology is significant for WBC minimally elevated 9.7. Otherwise unremarkable. ESR and CRP are normal. Urinalysis shows no blood or infection. CT scan abdomen pelvis impression as follows: 1. Diffuse fatty infiltration within the liver. 2. Small cyst within the left kidney. Nonobstructing stone within the right kidney. 3. Diffuse gastric wall thickening with what appears to be air within the gastric wall. Endoscopy is recommended to further evaluate. Results were discussed with general surgeon on-call, Dr. Grimm. He will be down to examine the patient in the ER. Updated patient and he is in agreement. 04/14/21 15:08 Dr. Grimm was here to see the patient. He will take him for endoscopy. I have ordered Covid screening. Departure - Departure Time of Disposition: 15:10 Disposition: DC/Tfer to [facility] Condition: Good Clinical Impression: Rectal bleeding, Epigastric pain - Discharge Information Sepsis Event Note (ED) - Evaluation Sepsis Screening Result: No Definite Risk
[2021-04-14] MEDS: Sodium Chloride 0.9% 10 ML Syringe FLUSH PRN ×2 (12:27→12:49)
--- NOTE | 2021-04-14 13:09 | CT ---
CT abdomen and pelvis Technique: Multiple axial sections were obtained from above the dome of the diaphragm inferiorly through the pubic symphysis. Intravenous and oral contrast was utilized. Reconstructed coronal and sagittal images were obtained. Comparison: Prior CT abdomen and pelvis study of 01/17/21. Findings: Visualized lung bases show nothing acute. Liver shows prominent fatty infiltration. Spleen size is normal. Adrenal glands show no nodule. Left kidney shows a small cyst superiorly which measures 6 mm. Nonobstructing calculus is noted within the right kidney measuring about 4 mm. Pancreas shows no abnormality. Surgical clips are seen from prior cholecystectomy. There is diffuse gastric wall thickening appearing to be present throughout a large portion of the stomach. Questionable air within the stomach wall is also noted. No small bowel dilatation is seen. No other bowel wall thickening is noted. Normal aorta shows no aneurysm. No retroperitoneal adenopathy or mesenteric abnormalities are seen. Appendix is not visualized with certainty. No pelvic mass or adenopathy is seen. Delayed images show contrast within the distal ureters as well as contrast being seen within the bladder. Bone window settings were reviewed which show nothing acute within the visualized osseous structures. Impression: 1. Diffuse fatty infiltration within the liver. 2. Small cyst within the left kidney. Nonobstructing stone within the right kidney. 3. Diffuse gastric wall thickening with what appears to be air within the gastric wall. Endoscopy is recommended to further evaluate. Diagnostic code #3
--- NOTE | 2021-04-14 15:45 | PCM.PREANE ---
Preanesthetic Assessment - Procedure Proposed Procedure: EGD - Anesthesia/Transfusion/Family Hx Anesthesia History: Prior Anesthesia Without Reaction Family History of Anesthesia Reaction: No Transfusion History: No Prior Transfusion(s) Intubation History: Unknown - Review of Systems General: No Symptoms Pulmonary: No Symptoms Cardiovascular: No Symptoms Gastrointestinal: Abdominal Pain, Melena, Nausea Other: Reports: None - Physical Assessment NPO Status Date: 04/14/21 NPO Status Time: 12:00 (Contrast finished at 1200 today; had coffee at 0600 this morning) Vital Signs: Last Vital Signs Temp 97.6 F 04/14/21 11:07 Pulse 99 04/14/21 11:07 Resp 16 04/14/21 11:07 BP 128/96 H 04/14/21 11:07 Pulse Ox 100 04/14/21 11:07 Height: 1.85 m Weight: 112.309 kg ASA Class: 2E Mental Status: Alert & Oriented x3 Airway Class: Mallampati = 2 Dentition: Reports: Blanche(s), Caries Thyro-Mental Finger Breadths: 3 Mouth Opening Finger Breadths: 3 ROM/Head Extension: Full Lungs: Clear to Auscultation, Normal Respiratory Effort Cardiovascular: Regular Rate, Regular Rhythm, No Murmurs - Lab Values: Laboratory Last Values WBC 9.70 K/mm3 (4.23-9.07) H 04/14/21 12:25 RBC 5.59 M/mm3 (4.63-6.08) 04/14/21 12:25 Hgb 16.6 gm/dl (13.7-17.5) 04/14/21 12:25 Hct 48.4 % (40.1-51.0) 04/14/21 12:25 MCV 86.6 fl (79.0-92.2) 04/14/21 12:25 MCH 29.7 pg (25.7-32.2) 04/14/21 12:25 MCHC 34.3 g/dl (32.2-35.5) 04/14/21 12:25 RDW Std Deviation 42.3 fL (35.1-43.9) 04/14/21 12:25 Plt Count 242 K/mm3 (163-337) 04/14/21 12:25 MPV 9.7 fl (9.4-12.3) 04/14/21 12:25 Neut % (Auto) 60.5 % (34.0-67.9) 04/14/21 12:25 Lymph % (Auto) 29.6 % (21.8-53.1) 04/14/21 12:25 [place] % (Auto) 6.7 % (5.3-12.2) 04/14/21 12:25 Eos % (Auto) 2.5 (0.8-7.0) 04/14/21 12:25 Baso % (Auto) 0.6 % (0.1-1.2) 04/14/21 12:25 Neut # (Auto) 5.87 K/mm3 (1.78-5.38) H 04/14/21 12:25 Lymph # (Auto) 2.87 K/mm3 (1.32-3.57) 04/14/21 12:25 [place] # (Auto) 0.65 K/mm3 (0.30-0.82) 04/14/21 12:25 Eos # (Auto) 0.24 K/mm3 (0.04-0.54) 04/14/21 12:25 Baso # (Auto) 0.06 K/mm3 (0.01-0.08) 04/14/21 12:25 ESR 3 mm/hr (0-15) 04/14/21 12:25 PT 10.1 SECONDS (9.7-12.0) 04/14/21 12:25 INR < 0.93 04/14/21 12:25 APTT 29.3 SECONDS (21.7-31.4) 04/14/21 12:25 Sodium 141 mEq/L (136-145) 04/14/21 12:25 Potassium 3.9 mEq/L (3.5-5.1) 04/14/21 12:25 Chloride 102 mEq/L (98-107) 04/14/21 12:25 Carbon Dioxide 28 mEq/L (21-32) 04/14/21 12:25 Anion Gap 14.9 (5-15) 04/14/21 12:25 BUN 13 mg/dL (7-18) 04/14/21 12:25 Creatinine 1.3 mg/dL (0.7-1.3) 04/14/21 12:25 Est Cr Clr Drug Dosing 84.51 mL/min 04/14/21 12:25 Estimated GFR (MDRD) > 60 mL/min (>60) 04/14/21 12:25 BUN/Creatinine Ratio 10.0 (14-18) L 04/14/21 12:25 Glucose 90 mg/dL (70-99) 04/14/21 12:25 Calcium 9.0 mg/dL (8.5-10.1) 04/14/21 12:25 Total Bilirubin 0.4 mg/dL (0.2-1.0) 04/14/21 12:25 AST 23 U/L (15-37) 04/14/21 12:25 ALT 57 U/L (16-63) 04/14/21 12:25 Alkaline Phosphatase 95 U/L (46-116) 04/14/21 12:25 C-Reactive Protein 0.2 mg/dL (<1.0) 04/14/21 12:25 Total Protein 7.7 g/dl (6.4-8.2) 04/14/21 12:25 Albumin 4.2 g/dl (3.4-5.0) 04/14/21 12:25 Globulin 3.5 gm/dL 04/14/21 12:25 Albumin/Globulin Ratio 1.2 (1-2) 04/14/21 12:25 Urine Color Yellow (Yellow) 04/14/21 12:25 Urine Appearance Clear (Clear) 04/14/21 12:25 Urine pH 6.0 (5.0-8.0) 04/14/21 12:25 Ur Specific [place] 1.020 (1.005-1.030) 04/14/21 12:25 Urine Protein Negative (Negative) 04/14/21 12:25 Urine Glucose (UA) Negative (Negative) 04/14/21 12:25 Urine Ketones Negative (Negative) 04/14/21 12:25 Urine Occult Blood Negative (Negative) 04/14/21 12:25 Urine Nitrite Negative (Negative) 04/14/21 12:25 Urine Bilirubin Negative (Negative) 04/14/21 12:25 Urine Urobilinogen 0.2 (0.2-1.0) 04/14/21 12:25 Ur Leukocyte Esterase Negative (Negative) 04/14/21 12:25 Urine RBC 0-5 /hpf (0-5) 04/14/21 12:25 Urine WBC 0-5 /hpf (0-5) 04/14/21 12:25 Ur Epithelial Cells 0-5 /hpf (0-5) 04/14/21 12:25 Urine Bacteria Not seen /hpf (FEW) 04/14/21 12:25 Urine Mucus Not seen /hpf (FEW) 04/14/21 12:25 - Allergies Allergies/Adverse Reactions: Allergies Allergy/AdvReac Type Severity Reaction Status Date / Time codeine Allergy Itching Verified 04/14/21 11:10 - Acknowledgements Anesthesia Type Planned: MAC Pt an Appropriate Candidate for the Planned Anesthesia: Yes Alternatives and Risks of Anesthesia Discussed w Pt/Guardian: Yes Pt/Guardian Understands and Agrees with Anesthesia Plan: Yes PreAnesthesia Questionnaire HEENT History: Reports: Impaired Vision Cardiovascular History: Reports: Hypertension Respiratory History: Reports: Asthma Gastrointestinal History: Reports: Chronic Diarrhea, GERD Genitourinary History: Reports: Renal Calculus Musculoskeletal History: Reports: Other (See Below) Other Musculoskeletal History: right knee surgery Neurological History: Reports: Migraines Psychiatric History: Reports: None Endocrine/Metabolic History: Reports: Obesity/BMI 30+ Hematologic History: Reports: None Immunologic History: Reports: None Oncologic (Cancer) History: Reports: None Dermatologic History: Reports: None - Past Surgical History GI Surgical History: Reports: Appendectomy, Cholecystectomy Other Musculoskeletal Surgeries/Procedures:: elbow and knee surgery scopes x 2 - SUBSTANCE USE Tobacco Use Status *Q: Current Every Day Tobacco User Tobacco Use Within Last Twelve Months: Cigarettes Second Hand Smoke Exposure: No Days Per Week of Alcohol Use: 0 Number of Drinks Per Day: 0 Total Drinks Per Week: 0 Recreational Drug Use History: No - HOME MEDS Home Medications: Home Meds Hydrocodone/Acetaminophen [HYDROcodone-Acetaminophen 5-325 MG] 1 - 2 each PO Q6H PRN #20 tab 01/17/21 [Rx] Lisinopril/Hydrochlorothiazide [Lisinopril-Hctz 20-25 mg Tab] 1 tab PO DAILY 01/17/21 [History] Omeprazole Magnesium [Prilosec Otc] 20 mg PO DAILY 01/17/21 [History] Topiramate [Topamax] 25 mg PO DAILY 01/17/21 [History] - CURRENT (IN HOUSE) MEDS Current Meds: Current Medications Sodium Chloride (Normal Saline) 1,000 mls @ 150 mls/hr IV NOW STA Stop: 04/14/21 18:21 Last Admin: 04/14/21 12:26 Dose: 150 mls/hr Documented by: Sodium Chloride (Sodium Chloride 0.9% 10 Ml Syringe) 10 ml FLUSH ASDIRECTED PRN PRN Reason: Keep Vein Open Last Admin: 04/14/21 12:26 Dose: 10 ml Documented by: Sodium Chloride (Sodium Chloride 0.9% 10 Ml Syringe) 10 ml FLUSH ONETIME PRN PRN Reason: IV FLUSH Last Admin: 04/14/21 12:49 Dose: 10 ml Documented by: Discontinued Medications Diatrizoate Meglum/Diatrizoate Sod (Diatrizoate Meglumine/Diatrizoate Sodium 37% 120 Ml Bottle) 120 ml PO ONETIME ONE Stop: 04/14/21 11:49 Last Admin: 04/14/21 12:26 Dose: 120 ml Documented by: Iopamidol (Iopamidol 612 Mg/Ml 100 Ml Bottle) 100 ml IVPUSH ONETIME ONE Stop: 04/14/21 11:49 Last Admin: 04/14/21 12:49 Dose: 100 ml Documented by:
--- NOTE | 2021-04-14 15:48 | PCM.HP.2 ---
H&P History of Present Illness - General Date of Service: 04/14/21 Admit Problem/Dx: gastritis Source of Information: Patient History Limitations: Reports: No Limitations - History of Present Illness Initial Comments - Free Text/Narative: Mr. Daugherty is a 41 yo man presenting with chief complaint of abdominal pain. He also had some rectal bleeding within the past 24 hours. His pain has been going on for the past three weeks. It has been steady in severity and constant, he rates severity at 6-7/10. He denies nausea, vomiting. Rectal bleeding is describes as painless and red. He has GERD and symptoms have not been well controlled lately; he has been taking daily omeprazole for the past 10 years. He has had multiple upper and lower endoscopic procedures in the past. 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 Last colonoscopy was reportedly normal. He has a sister with Crohn disease which is not severe. Past surgical history includes cholecystectomy. Labs in the ER are basically normal. CT imaging is significant for finding of thickened stomach wall with possible intramural gas. Back Pain Score (Numeric/FACES): 4 - Related Data Allergies/Adverse Reactions: Allergies Allergy/AdvReac Type Severity Reaction Status Date / Time codeine Allergy Itching Verified 04/14/21 11:10 Home Medications: Home Meds Hydrocodone/Acetaminophen [HYDROcodone-Acetaminophen 5-325 MG] 1 - 2 each PO Q6H PRN #20 tab 01/17/21 [Rx] Lisinopril/Hydrochlorothiazide [Lisinopril-Hctz 20-25 mg Tab] 1 tab PO DAILY 01/17/21 [History] Omeprazole Magnesium [Prilosec Otc] 20 mg PO DAILY 01/17/21 [History] Topiramate [Topamax] 25 mg PO DAILY 01/17/21 [History] Past Medical History Cardiovascular History: Reports: Hypertension Gastrointestinal History: Reports: Chronic Diarrhea Genitourinary History: Reports: Renal Calculus Musculoskeletal History: Reports: Other (See Below) Other Musculoskeletal History: right knee surgery Neurological History: Reports: Migraines Endocrine/Metabolic History: Reports: Obesity/BMI 30+ - Past Surgical History GI Surgical History: Reports: Appendectomy, Cholecystectomy Other Musculoskeletal Surgeries/Procedures:: elbow and knee surgery Social & Family History - Tobacco Use Tobacco Use Status *Q: Current Every Day Tobacco User Years of Tobacco use: 25 Packs/Tins Daily: 0.5 - Caffeine Use Caffeine Use: Reports: Coffee - Recreational Drug Use Recreational Drug Use: No H&P Review of Systems - Review of Systems: Review Of Systems: See Below General: Reports: Malaise HEENT: Reports: No Symptoms Pulmonary: Reports: No Symptoms Cardiovascular: Reports: No Symptoms Gastrointestinal: Reports: Abdominal Pain, Hematochezia Genitourinary: Reports: No Symptoms Musculoskeletal: Reports: No Symptoms Skin: Reports: No Symptoms Psychiatric: Reports: No Symptoms Neurological: Reports: No Symptoms Hematologic/Lymphatic: Reports: No Symptoms Immunologic: Reports: No Symptoms Exam - Exam Exam: See Below - Vital Signs Vital Signs: Last Vital Signs Temp 36.4 C 04/14/21 11:07 Pulse 99 04/14/21 11:07 Resp 16 04/14/21 11:07 BP 128/96 H 04/14/21 11:07 Pulse Ox 100 04/14/21 11:07 Weight: 112.309 kg - Exam General: Alert, Oriented, Cooperative HEENT: Conjunctiva Clear, Other (enlarged uvula) Neck: Supple Lungs: Normal Respiratory Effort Cardiovascular: Regular Rate GI/Abdominal Exam: Soft, Non-Tender, No Mass Extremities: Normal Inspection Skin: Warm, Dry Neuro Extensive - Mental Status: Alert, Oriented x3 Psychiatric: Normal Mood - Patient Data Lab Results Last 24 hrs: Laboratory Results - last 24 hr 04/14/21 04/14/21 04/14/21 Range/Units 12:25 12:25 12:25 WBC 9.70 H (4.23-9.07) K/mm3 RBC 5.59 (4.63-6.08) M/mm3 Hgb 16.6 (13.7-17.5) gm/dl Hct 48.4 (40.1-51.0) % MCV 86.6 (79.0-92.2) fl MCH 29.7 (25.7-32.2) pg MCHC 34.3 (32.2-35.5) g/dl RDW Std Deviation 42.3 (35.1-43.9) fL Plt Count 242 (163-337) K/mm3 MPV 9.7 (9.4-12.3) fl Neut % (Auto) 60.5 (34.0-67.9) % Lymph % (Auto) 29.6 (21.8-53.1) % Island % (Auto) 6.7 (5.3-12.2) % Eos % (Auto) 2.5 (0.8-7.0) Baso % (Auto) 0.6 (0.1-1.2) % Neut # (Auto) 5.87 H (1.78-5.38) K/mm3 Lymph # (Auto) 2.87 (1.32-3.57) K/mm3 Island # (Auto) 0.65 (0.30-0.82) K/mm3 Eos # (Auto) 0.24 (0.04-0.54) K/mm3 Baso # (Auto) 0.06 (0.01-0.08) K/mm3 ESR 3 (0-15) mm/hr PT (9.7-12.0) SECONDS INR APTT (21.7-31.4) SECONDS Sodium (136-145) mEq/L Potassium (3.5-5.1) mEq/L Chloride (98-107) mEq/L Carbon Dioxide (21-32) mEq/L Anion Gap (5-15) BUN (7-18) mg/dL Creatinine (0.7-1.3) mg/dL Est Cr Clr Drug Dosing mL/min Estimated GFR (MDRD) (>60) mL/min BUN/Creatinine Ratio (14-18) Glucose (70-99) mg/dL Calcium (8.5-10.1) mg/dL Total Bilirubin (0.2-1.0) mg/dL AST (15-37) U/L ALT (16-63) U/L Alkaline Phosphatase (46-116) U/L C-Reactive Protein (<1.0) mg/dL Total Protein (6.4-8.2) g/dl Albumin (3.4-5.0) g/dl Globulin gm/dL Albumin/Globulin Ratio (1-2) Urine Color Yellow (Yellow) Urine Appearance Clear (Clear) Urine pH 6.0 (5.0-8.0) Ur Specific [place] 1.020 (1.005-1.030) Urine Protein Negative (Negative) Urine Glucose (UA) Negative (Negative) Urine Ketones Negative (Negative) Urine Occult Blood Negative (Negative) Urine Nitrite Negative (Negative) Urine Bilirubin Negative (Negative) Urine Urobilinogen 0.2 (0.2-1.0) Ur Leukocyte Esterase Negative (Negative) Urine RBC 0-5 (0-5) /hpf Urine WBC 0-5 (0-5) /hpf Ur Epithelial Cells 0-5 (0-5) /hpf Urine Bacteria Not seen (FEW) /hpf Urine Mucus Not seen (FEW) /hpf 04/14/21 04/14/21 Range/Units 12:25 12:25 WBC (4.23-9.07) K/mm3 RBC (4.63-6.08) M/mm3 Hgb (13.7-17.5) gm/dl Hct (40.1-51.0) % MCV (79.0-92.2) fl MCH (25.7-32.2) pg MCHC (32.2-35.5) g/dl RDW Std Deviation (35.1-43.9) fL Plt Count (163-337) K/mm3 MPV (9.4-12.3) fl Neut % (Auto) (34.0-67.9) % Lymph % (Auto) (21.8-53.1) % Island % (Auto) (5.3-12.2) % Eos % (Auto) (0.8-7.0) Baso % (Auto) (0.1-1.2) % Neut # (Auto) (1.78-5.38) K/mm3 Lymph # (Auto) (1.32-3.57) K/mm3 Island # (Auto) (0.30-0.82) K/mm3 Eos # (Auto) (0.04-0.54) K/mm3 Baso # (Auto) (0.01-0.08) K/mm3 ESR (0-15) mm/hr PT 10.1 (9.7-12.0) SECONDS INR < 0.93 APTT 29.3 (21.7-31.4) SECONDS Sodium 141 (136-145) mEq/L Potassium 3.9 (3.5-5.1) mEq/L Chloride 102 (98-107) mEq/L Carbon Dioxide 28 (21-32) mEq/L Anion Gap 14.9 (5-15) BUN 13 (7-18) mg/dL Creatinine 1.3 (0.7-1.3) mg/dL Est Cr Clr Drug Dosing 84.51 mL/min Estimated GFR (MDRD) > 60 (>60) mL/min BUN/Creatinine Ratio 10.0 L (14-18) Glucose 90 (70-99) mg/dL Calcium 9.0 (8.5-10.1) mg/dL Total Bilirubin 0.4 (0.2-1.0) mg/dL AST 23 (15-37) U/L ALT 57 (16-63) U/L Alkaline Phosphatase 95 (46-116) U/L C-Reactive Protein 0.2 (<1.0) mg/dL Total Protein 7.7 (6.4-8.2) g/dl Albumin 4.2 (3.4-5.0) g/dl Globulin 3.5 gm/dL Albumin/Globulin Ratio 1.2 (1-2) Urine Color (Yellow) Urine Appearance (Clear) Urine pH (5.0-8.0) Ur Specific [place] (1.005-1.030) Urine Protein (Negative) Urine Glucose (UA) (Negative) Urine Ketones (Negative) Urine Occult Blood (Negative) Urine Nitrite (Negative) Urine Bilirubin (Negative) Urine Urobilinogen (0.2-1.0) Ur Leukocyte Esterase (Negative) Urine RBC (0-5) /hpf Urine WBC (0-5) /hpf Ur Epithelial Cells (0-5) /hpf Urine Bacteria (FEW) /hpf Urine Mucus (FEW) /hpf Result Diagrams: 04/14/21 12:25 04/14/21 12:25 Sepsis Event Note - Evaluation Sepsis Screening Result: No Definite Risk - Focused Exam Vital Signs: Vital Signs Temp Pulse Resp BP Pulse Ox 04/14/21 11:07 36.4 C 99 16 128/96 H 100 Problem List Initiated/Reviewed/Updated: Yes Orders Last 24hrs: Active Orders 24 hr Category Date Time Status Peripheral IV Care [RC] . DIRECTED Care 04/14/21 11:42 Active CORONAVIRUS COVID-19 LOVE [MOLEC] Routine Lab 04/14/21 15:04 Received Sodium Chloride 0.9% [Normal Saline] 1,000 ml Med 04/14/21 11:42 Active IV NOW Sodium Chloride 0.9% [Saline Flush] Med 04/14/21 11:42 Active 10 ml FLUSH ASDIRECTED PRN Sodium Chloride 0.9% [Saline Flush] Med 04/14/21 11:48 Active 10 ml FLUSH ONETIME PRN Peripheral IV Insertion Adult [OM.PC] Stat Oth 04/14/21 11:42 Ordered Schedule Procedure [COMM] Routine Oth 04/14/21 15:42 Ordered Medication Orders Sodium Chloride (Normal Saline) 1,000 mls @ 150 mls/hr IV NOW STA Stop: 04/14/21 18:21 Last Admin: 04/14/21 12:26 Dose: 150 mls/hr Documented by: REID Sodium Chloride (Sodium Chloride 0.9% 10 Ml Syringe) 10 ml FLUSH ASDIRECTED PRN PRN Reason: Keep Vein Open Last Admin: 04/14/21 12:26 Dose: 10 ml Documented by: REID Sodium Chloride (Sodium Chloride 0.9% 10 Ml Syringe) 10 ml FLUSH ONETIME PRN PRN Reason: IV FLUSH Last Admin: 04/14/21 12:49 Dose: 10 ml Documented by: Admin: 04/14/21 12:27 Dose: 10 ml Documented by: REID Assessment/Plan Comment:: Subacute epigastric pain with history of GERD, and CT imaging with worrisome findings of thickened gastric wall with possible emphysema. Clinical picture is reassuring as is lab work. Plan for endoscopic correlation given symptoms and imaging findings. - Mortality Measure Prognosis:: Good
[2021-04-14] MEDS ORDERED: Propofol 200 MG/20 ML SDV ONE (16:02)
[2021-04-14] MEDS ORDERED: Midazolam 1 MG/ML 2 ML SDV ONE (16:02)
[2021-04-14] MEDS ORDERED: Lidocaine 1% 6 ML ONE (16:02)
[2021-04-14] MEDS ORDERED: fentaNYL 100 MCG/2 ML SDV ONE (16:05)
--- NOTE | 2021-04-14 16:35 | PCM.PRNOTE ---
- Free Text/Narrative Note: Date: 04/14/2021 Procedure: diagnostic esophagogastroduodenoscopy Indication: epigastric pain and findings on CT concerning for gastritis Endoscopist: Guille Grimm MD Findings: no evidence of bleeding or ulceration. Small hiatal hernia. No gross esophagitis. Detailed Report: The patient was taken to the endoscopy suite and placed in left lateral decubitus position. Timeout was performed and monitored anesthesia care was initiated. A bite-block was placed. The endoscope was inserted in the mouth and advanced to the duodenum with ease. Duodenal mucosa appeared grossly normal. A biopsy from the duodenal bulb was obtained with cold forceps. Scope was withdrawn in the stomach. The pylorus appeared normal, and there were no mucosal lesions noted within the stomach. Biopsy of antral mucosa and cardia mucosa were obtained with cold forceps; the mucosa around the GE junction appeared somewhat edematous. On retroflexion, a small sliding hiatal hernia was observed. The scope was withdrawn into the herniated stomach and the Z-line was visualized. Grossly, the Z-line appeared fairly normal. There was no obvious gross evidence of Fritz metaplasia and no gross evidence of reflux esophagitis. Biopsies were obtained near the GE junction and of the distal esophageal mucosa with cold forceps. Air was suctioned from the stomach prior to withdrawal of the scope. The remainder of the esophagus appeared normal as the scope was withdrawn. The patient tolerated the procedure well.
--- NOTE | 2021-04-14 16:47 | PCM48HPAN ---
Post Anesthesia Note - EVALUATION WITHIN 48HRS OF ANESTHETIC Vital Signs in Normal Range: Yes Patient Participated in Evaluation: Yes Respiratory Function Stable: Yes Airway Patent: Yes Cardiovascular Function Stable: Yes Hydration Status Stable: Yes Pain Control Satisfactory: Yes Nausea and Vomiting Control Satisfactory: Yes Mental Status Recovered: Yes Vital Signs: Last Vital Signs Temp 97.6 F 04/14/21 11:07 Pulse 99 04/14/21 11:07 Resp 16 04/14/21 11:07 BP 128/96 H 04/14/21 11:07 Pulse Ox 100 04/14/21 11:07 Vital signs at 1638: BP 121/75 94% RA HR 82 RR 16 97.3
[2021-04-14 16:58] VITALS: BP 121/75; PULSE 82
== END 2021-04-14 17:05 | disposition home or self-care (01) ==
LOC: JD.ED 10:53 → JD.SDS 15:36
PROVIDERS: ATTEND Surgery
DX: K20.0 Eosinophilic esophagitis (principal); K29.80 Duodenitis without bleeding; K44.9 Diaphragmatic hernia without obstruction or gangrene; K31.89 Other diseases of stomach and duodenum; K31.7 Polyp of stomach and duodenum; K21.9 Gastro-esophageal reflux disease without esophagitis; E66.9 Obesity, unspecified; I10 Essential (primary) hypertension; F17.210 Nicotine dependence, cigarettes, uncomplicated; Z01.812 Encounter for preprocedural laboratory examination; Z88.5 Allergy status to narcotic agent; Z90.49 Acquired absence of other specified parts of digestive tract; Z79.899 Other long term (current) drug therapy; Z98.890 Other specified postprocedural states; Z20.822 Contact with and (suspected) exposure to COVID-19
CPT/HCPCS: 36415; 43239; 74177; 80053; 81001; 85025; 85610; 85652; 85730; 86140; 87635; 99285; J2250; J2704; J3010; J7030; Q9963; Q9967; 00731; U0002

== ENCOUNTER 2021-07-16 07:04 | Day surgery (SDC) | payer BC ==
[~2021-07-16 07:04] MED LIST: EPINEPHrine 1 MG/ML 30 ML MDV IRR SCH; Lactated Ringers 1,000 ML IV SCH; Lidocaine 1%/Sod Bicarbonate in NS 8.4% 1 ML Syringe IDERM PRN; Sodium Chloride 0.9% 10 ML Syringe FLUSH PRN; Sodium Chloride 0.9% 10 ML Syringe FLUSH SCH
[2021-07-16] MEDS ORDERED: fentaNYL 100 MCG/2 ML SDV ONE ×2 (08:24→08:26)
[2021-07-16] MEDS ORDERED: Propofol 200 MG/20 ML SDV ONE (08:24)
[2021-07-16] MEDS ORDERED: Lidocaine 1% 5 ML VIAL ONE (08:24)
[2021-07-16] MEDS ORDERED: Midazolam 1 MG/ML 2 ML SDV ONE ×2 (08:24→08:26)
[2021-07-16] MEDS ORDERED: Succinylcholine/Sod PF 100 MG/5 ML SYRINGE IV ONE (08:26)
[2021-07-16] MEDS ORDERED: Lidocaine 1% 2 ML ONE (08:26)
[2021-07-16] MEDS ORDERED: EPINEPHrine 1 MG/ML SDV ONE (08:29)
[2021-07-16] MEDS ORDERED: Ropivacaine 0.5% 5 MG/ML 30 ML SDV ONE (08:29)
[2021-07-16] MEDS ORDERED: ceFAZolin 1 GM Vial ONE (08:58)
[2021-07-16] MEDS ORDERED: Ondansetron 4 MG/2 ML SDV ONE (09:44)
[2021-07-16] MEDS ORDERED: Dexamethasone 4 MG/ML 5 ML MDV ONE (09:44)
[2021-07-16] MEDS ORDERED: fentaNYL 100 MCG/2 ML SDV IVPUSH PRN (10:26)
[2021-07-16] MEDS ORDERED: Ondansetron 4 MG/2 ML SDV IVPUSH PRN (10:26)
[2021-07-16] MEDS ORDERED: HYDROmorphone 0.5 MG/0.5 ML Syringe IVPUSH PRN (10:26)
[2021-07-16 12:10] VITALS: BP 121/80; PULSE 85
== END 2021-07-16 11:57 | disposition home or self-care (01) ==
LOC: JD.SDS 07:04
PROVIDERS: ATTEND Orthopaedic Surgery
DX: S43.431A Superior glenoid labrum lesion of right shoulder, initial encounter (principal); M75.21 Bicipital tendinitis, right shoulder; I10 Essential (primary) hypertension; K21.9 Gastro-esophageal reflux disease without esophagitis; E66.9 Obesity, unspecified; J45.909 Unspecified asthma, uncomplicated; G43.109 Migraine with aura, not intractable, without status migrainosus; F17.210 Nicotine dependence, cigarettes, uncomplicated; Z68.31 Body mass index [BMI] 31.0-31.9, adult; Z79.899 Other long term (current) drug therapy; Z88.5 Allergy status to narcotic agent; Z90.49 Acquired absence of other specified parts of digestive tract; Z98.890 Other specified postprocedural states
CPT/HCPCS: 29807; C1713; J0171; J0330; J0690; J1100; J2250; J2405; J2704; J2795; J3010; J7120; 01630; 64415; 76942

== ENCOUNTER 2023-02-17 15:53 | Emergency (ER) | payer BC ==
[2023-02-17] MEDS ORDERED: Dextrose 5%-0.9% NaCl 1,000 ML IV SCH (16:15)
[2023-02-17 16:30] LABS: BASOPHILS ABSOLUTE AUTO 0.1 K/mm3 (0.0-0.2); BASOPHILS PERCENT AUTO 0.6 % (0.0-1.0); EOSINOPHILS ABSOLUTE AUTO 0.3 K/mm3 (0.0-0.4); EOSINOPHILS PERCENT AUTO 2.8 % (0.0-6.0); HEMATOCRIT 44.8 % (42.0-52.0); HEMOGLOBIN 15.9 gm/dl (14.0-18.0); IMMATURE GRAN ABSOLUTE AUTO 0.03 K/mm3 (0.00-0.05); IMMATURE GRAN PERCENT AUTO 0.3 % (0.0-0.4); LYMPHOCYTES ABSOLUTE AUTO 2.7 K/mm3 (1.0-4.8); LYMPHOCYTES PERCENT AUTO 25.9 % (24.0-44.0); MEAN CORPUSCULAR HEMOGLOBIN 30.7 pg (28.0-32.0); MEAN CORPUSCULAR HGB CONC 35.5 g/dl (32.0-36.0); MEAN CORPUSCULAR VOLUME 86.5 fl (83.0-99.0); MEAN PLATELET VOLUME 9.1 fl (9.4-12.4); MONOCYTES ABSOLUTE AUTO 0.8 K/mm3 (0.0-0.8); MONOCYTES PERCENT AUTO 7.6 % (0.0-8.0); NEUTROPHILS ABSOLUTE AUTO 6.5 K/mm3 (1.8-7.7); NEUTROPHILS PERCENT AUTO 62.8 % (41.0-71.0); PLATELET COUNT,PLT 253 K/mm3 (150-400); RED BLOOD CELL COUNT 5.18 M/mm3 (4.52-5.90); WHITE BLOOD CELL COUNT,WBC 10.33 K/mm3 (3.9-11.3)
[2023-02-17] MEDS ORDERED: Hyoscyamine 0.125 MG Tab.SL SL ONE ×2 (16:34→16:56)
[2023-02-17] MEDS ORDERED: Aspirin 81 MG Tab.Chew PO ONE (16:34)
[2023-02-17] MEDS ORDERED: Aspirin 81 MG Tab.Chew ONE (16:51)
[2023-02-17 17:00] LABS: A/G RATIO 1.1 (1-2); ALANINE AMINOTRANSFERASE,ALT 86 U/L (16-63); ALBUMIN 3.7 g/dl (3.4-5.0); ALKALINE PHOSPHATASE 83 U/L (46-116); ANION GAP 11.3 (5-15); ASPARTATE AMNIOTRANSFERASE,AST 36 U/L (15-37); BILIRUBIN TOTAL 0.4 mg/dL (0.2-1.0); BLOOD UREA NITROGEN,BUN 15 mg/dL (7-18); BUN/CREATININE RATIO 11.5 (14-18); C-REACTIVE PROTEIN 0.9 mg/dL (<1.0); CALCIUM 8.8 mg/dL (8.5-10.1); CARBON DIOXIDE,CO2 29 mEq/L (21-32); CHLORIDE,CL 101 mEq/L (98-107); CREATININE 1.3 mg/dL (0.7-1.3); ESTIMATED GFR 70 mL/min (>60); GLUCOSE RANDOM 118 mg/dL (70-99); MAGNESIUM 2.1 mg/dL (1.8-2.4); POTASSIUM,K 3.3 mEq/L (3.5-5.1); SODIUM,NA 138 mEq/L (136-145)
[2023-02-17 17:12] LABS: TROPONIN I HIGH SENSITIVITY < 4 pg/mL (<=76)
[2023-02-17] MEDS ORDERED: Iopamidol 755 Mg/ML 100 ML Bottle IVPUSH ONE (18:09)
[2023-02-17] MEDS ORDERED: Sodium Chloride 0.9% 100 ML IV SCH (18:15)
[2023-02-17 18:47] VITALS: BP 130/94; PULSE 94
[2023-02-17] MEDS ORDERED: Dicyclomine 10 MG Cap PO ONE (18:52)
[2023-02-17] MEDS ORDERED: HYDROmorphone 1 MG/ML Syringe IVPUSH ONE (18:52)
[2023-02-17] MEDS ORDERED: Metoclopramide 10 MG/2 ML SDV IVPUSH ONE (18:53)
== END 2023-02-17 19:41 | disposition home or self-care (01) ==
LOC: JD.ED 15:53
DX: K44.9 Diaphragmatic hernia without obstruction or gangrene (principal); R07.89 Other chest pain; K21.9 Gastro-esophageal reflux disease without esophagitis; E66.9 Obesity, unspecified; F17.210 Nicotine dependence, cigarettes, uncomplicated; I10 Essential (primary) hypertension; J45.909 Unspecified asthma, uncomplicated; Z88.5 Allergy status to narcotic agent
CPT/HCPCS: 36415; 71045; 71275; 80053; 83690; 83735; 83880; 84443; 84484; 85025; 85379; 85730; 86140; 96361; 96374; 96375; 99285; A9270; J1170; J2765; J7042; Q9967; 93010; 99284

== ENCOUNTER 2024-10-12 06:45 | Day surgery (SDC) | payer BC ==
[~2024-10-12 06:45] MED LIST changes: -EPINEPHrine 1 MG/ML 30 ML MDV IRR SCH; -Lactated Ringers 1,000 ML IV SCH; -Lidocaine 1%/Sod Bicarbonate in NS 8.4% 1 ML Syringe IDERM PRN; +Ropivacaine 0.5% 5 MG/ML 30 ML SDV ONE; +dexmedeTOMIDine HCl 200 MCG/2 ML SDV ONE; +fentaNYL 100 MCG/2 ML SDV IVPUSH PRN; +propofoL 500 MG/50 ML 50 ML ONE
[2024-10-12] MEDS ORDERED: Ondansetron 4 MG/2 ML SDV ONE (06:49)
[2024-10-12] MEDS ORDERED: Midazolam 1 MG/ML 2 ML SDV ONE (06:49)
[2024-10-12] MEDS: Lactated Ringers 1,000 ML IV SCH (07:05)
[2024-10-12] MEDS: Pregabalin 25 MG Cap PO ONE (07:13)
[2024-10-12] MEDS: Acetaminophen 325 MG Tab PO ONE (07:14)
[2024-10-12] MEDS: oxyCODONE ER 10 MG TAB.ER PO ONE (07:14)
[2024-10-12] MEDS ORDERED: ceFAZolin 2 GM Vial ONE (08:01)
[2024-10-12] MEDS ORDERED: Phenylephrine 1% 10 MG/ML SDV ONE (08:02)
[2024-10-12] MEDS ORDERED: fentaNYL 100 MCG/2 ML SDV ONE (08:07)
[2024-10-12] MEDS ORDERED: Lactated Ringers 1,000 ML ONE (08:16)
[2024-10-12] MEDS ORDERED: ePHEDrine 50 MG/ML SDV ONE (08:21)
[2024-10-12] MEDS ORDERED: Propofol 200 MG/20 ML SDV ONE (08:55)
[2024-10-12] MEDS ORDERED: HYDROmorphone 0.5 MG/0.5 ML Syringe IVPUSH PRN (08:58)
[2024-10-12] MEDS ORDERED: Ondansetron 4 MG/2 ML SDV IVPUSH PRN (08:58)
[2024-10-12] MEDS ORDERED: Ketorolac 30 MG/ML SDV IVPUSH ONE (08:58)
[2024-10-12] MEDS ORDERED: fentaNYL 100 MCG/2 ML SDV IVPUSH PRN (08:58)
[2024-10-12] MEDS: Morphine 8 MG, EPINEPHrine 0.3 MG, Cefuroxime 750 MG, Ketorolac 30 MG, Sodium Chloride ... PRN (09:13)
[2024-10-12] MEDS: Tranexamic Acid 1,000 MG/10 ML Vial ONE (09:19)
[2024-10-12] MEDS: VANCOmycin 1 GM SDV ONE (09:19)
[2024-10-12] MEDS: oxyCODONE 5 MG Tab PO PRN (10:09)
[2024-10-12 11:42] VITALS: BP 108/72; PULSE 81
[2024-10-12] MEDS: Ketorolac 30 MG/ML SDV IVPUSH PRN (11:56)
== END 2024-10-12 12:15 | disposition home or self-care (01) ==
LOC: JD.SDS 06:45
PROVIDERS: ATTEND Orthopaedic Surgery
DX: M17.11 Unilateral primary osteoarthritis, right knee (principal); I10 Essential (primary) hypertension; K21.9 Gastro-esophageal reflux disease without esophagitis; J45.909 Unspecified asthma, uncomplicated; E78.2 Mixed hyperlipidemia; Z87.891 Personal history of nicotine dependence; Z79.899 Other long term (current) drug therapy; Z88.5 Allergy status to narcotic agent
CPT/HCPCS: 0055T; 27447; 64447; 73560; 97116; 97161; 97530; A9270; C1713; C1776; J0171; J0690; J0697; J1885; J2250; J2272; J2371; J2405; J2704; J2795; J3010; J7120; 01402; J3490